=== PATIENT | female | born 1940 | race Hispanic/Latino ===

== ENCOUNTER 2017-01-15 07:58 | Outpatient (CLI) | payer MEDICARE ==
--- NOTE | 2017-01-14 09:28 | Mammography Report ---
BILATERAL MAMMOGRAM with CAD: HISTORY: Cancer screening. Comparison study is dated January 13, 2016. FINDINGS: There are scattered fibroglandular densities (approximately 25%-50% glandular). No mass, distortion, suspicious calcification, or skin change is seen. IMPRESSION: Negative mammogram. There is no mammographic evidence of malignancy. RECOMMENDATION: Follow-up per ACS guidelines. BI-RADS CATEGORY: 1 = Negative ACR BI-RADS MAMMOGRAPHIC CODES: 0 = Needs additional imaging evaluation; 1 = Negative; 2 = Benign; 3 = Probably benign; 4 = Suspicious; 5 = Malignant; 6 = Known biopsy-proven malignancy COMMENT: 1. Dense breast tissue, i.e., adenosis, fibrocystic changes, etc., may obscure an underlying neoplasm. 2. Approximately 10% of cancers are not detected with mammography. 3. A negative mammography report should not delay biopsy if a clinically suspicious mass is present. COMMENT: Patient follow-up letters are generated in [employer].
--- NOTE | 2017-01-15 08:29 | XRay Report ---
CHEST 2 VIEWS INDICATION: Malignant neoplasm of colon. COMPARISON: None similar. FINDINGS: PA and lateral chest radiographs demonstrate normal cardiomediastinal silhouette. Clear lungs. Demineralized bones. Multilevel thoracic spondylosis. CONCLUSION: No acute disease in the chest. Thank you for the opportunity to participate in this patient's care.
== END 2017-01-15 07:59 | disposition home or self-care (01) ==
LOC: SPVWC 07:58 → SPVIMAG 07:58
PROVIDERS: ATTEND Internal Medicine
DX: Z12.31 Encounter for screening mammogram for malignant neoplasm of breast (principal); C18.9 Malignant neoplasm of colon, unspecified; M47.894 Other spondylosis, thoracic region
CPT/HCPCS: 71020; G0202; 77067

== ENCOUNTER 2018-01-21 08:54 | Outpatient (CLI) | payer MEDICARE ==
--- NOTE | 2018-01-21 12:16 | Mammography Report ---
BILATERAL DIGITAL SCREENING MAMMOGRAM with CAD: 01/21/18 08:54:00 CLINICAL: Routine screening. COMPARISON: 01/14/17 FINDINGS: There are bilateral scattered areas of fibroglandular density.No mass, architectural distortion or suspicious calcifications. IMPRESSION: No mammographic evidence of malignancy. BI-RADS CATEGORY: 1 -- Negative RECOMMENDATION: Routine mammographic screening in one year. COMMENT: Patient follow-up letters are generated by our [employer] application.
== END 2018-01-21 08:55 | disposition home or self-care (01) ==
LOC: SPVWC 08:54
PROVIDERS: ATTEND Internal Medicine
DX: Z12.31 Encounter for screening mammogram for malignant neoplasm of breast (principal); M81.0 Age-related osteoporosis without current pathological fracture
CPT/HCPCS: 77067

== ENCOUNTER 2018-02-02 07:58 | Outpatient (CLI) | payer MEDICARE ==
--- NOTE | 2018-02-02 10:35 | Mammography Report ---
BONE DEXA:02/02/18 07:58:00 CLINICAL: Postmenopausal. COMPARISON: 01/13/16 TECHNIQUE: Two site bone DEXA performed on an Hologic scanner. FINDINGS: The average BMD of the lumbar spine L1-L4 is 1.012g/cm squared with a T-score of -0.3 and a Z-score of +2.2. This compares to 0.991g/cm squared on the last exam and represents a +2.1% change from the previous baseline. The average BMD of the left hip is 0.914g/cm squared with a T-score of -0.2 and a Z-score of +1.7. This compares to 0.917g/cm squared on the last exam and represents a -0.3% change from the previous baseline. IMPRESSION: 1. WHO classification: Normal with average fracture risk based on both spine and left hip measurements. 2. A slight improvement in spine BMD and a slight decline in left hip BMD compared to the last exam. RECOMMENDATION: Clinical correlation and routine screening. DEFINITIONS: BMD = Bone Mineral Density T-score = BMD related to mean peak bone mass of young adult (mean expressed in Standard Deviation) Z-score = Age matched BMD expressed in SD World Health Organization (WHO) Diagnostic Criteria Normal T-score > -1 SD Osteopenia T-score between -1 and -2.4 SD Osteoporosis T-score -2.5 SD or below NOTE: BMD is not the only risk factor for fracture; also consider factors such as the patient's age, risk of falling, previous osteoporotic fracture, family history of osteoporotic fractures, current smoker, and low body weight. Z-scores are not calculated if >80 years of age.
== END 2018-02-02 07:59 | disposition home or self-care (01) ==
LOC: SPVWC 07:58
PROVIDERS: ATTEND Internal Medicine
DX: M81.0 Age-related osteoporosis without current pathological fracture (principal); Z78.0 Asymptomatic menopausal state
CPT/HCPCS: 77080

== ENCOUNTER 2019-01-23 09:34 | Outpatient (CLI) | payer MEDICARE ==
--- NOTE | 2019-01-23 15:58 | Mammography Report ---
DIGITAL SCREENING MAMMOGRAM WITH CAD, 01/23/2019 INDICATION: Routine screening mammography. TECHNIQUE: Digital bilateral 2D mammography was obtained in the craniocaudal and mediolateral obliq ue projections. This examination was interpreted with the benefit of Computer-Aided Detection analysi s. COMPARISON: 01/21/2018 and 01/01/2015 FINDINGS: Breast Density: The breasts are heterogeneously dense, which may obscure small masses. There is no evidence of dominant mass, suspicious calcifications or architectural distortion in eithe r breast. IMPRESSION: No mammographic evidence of malignancy. Follow up recommendation: Routine yearly BI-RADS Category 1: Negative. A "normal" or negative report should not discourage follow up or biopsy of a clinically significant f inding. A written summary of these findings will be mailed to the patient. The patient will be entered into a mammography reporting system which will generate a reminder letter for the patient's next appointmen t at the appropriate interval. The [employer] recommends yearly mammograms starting at age 40 and continuing as l kelly as a woman is in good health. Breast MRI is recommended for women with an approximate 20-25% or greater lifetime risk of breast cancer, including women with a strong family history of breast or ova micki cancer or who have been treated for Hodgkin's disease. Signer Name: Diaz Martinez MD Signed: 01/23/2019 3:53 PM Workstation Name: [id number]
== END 2019-01-23 09:35 | disposition home or self-care (01) ==
LOC: SPVWC 09:34
PROVIDERS: ATTEND Internal Medicine
DX: Z12.31 Encounter for screening mammogram for malignant neoplasm of breast (principal)
CPT/HCPCS: 77067

== ENCOUNTER 2020-02-07 08:20 | Outpatient (CLI) | payer MEDICARE ==
--- NOTE | 2020-02-07 10:25 | Mammography Report ---
DIGITAL SCREENING MAMMOGRAM WITH CAD, 02/07/2020 INDICATION: Routine screening mammography. TECHNIQUE: Digital bilateral 2D mammography was obtained in the craniocaudal and mediolateral obliq ue projections. This examination was interpreted with the benefit of Computer-Aided Detection analysi s. COMPARISON: Prior mammograms 01/23/2019 and 01/21/2018 FINDINGS: Breast Density: There are scattered areas of fibroglandular density. There is no evidence of dominant mass, suspicious calcifications or architectural distortion in eithe r breast. There has been no significant change compared with the prior examinations. IMPRESSION: Follow up recommendation: Routine yearly BI-RADS Category 1: Negative. A "normal" or negative report should not discourage follow up or biopsy of a clinically significant f inding. A written summary of these findings will be mailed to the patient. The patient will be entered into a mammography reporting system which will generate a reminder letter for the patient's next appointmen t at the appropriate interval. The [employer] recommends yearly mammograms starting at age 40 and continuing as l kelly as a woman is in good health. Breast MRI is recommended for women with an approximate 20-25% or greater lifetime risk of breast cancer, including women with a strong family history of breast or ova micki cancer or who have been treated for Hodgkin's disease. Signer Name: Angela Calvin MD Signed: 02/07/2020 10:20 AM Workstation Name: [id number]
== END 2020-02-07 08:21 | disposition home or self-care (01) ==
LOC: SPVWC 08:20
PROVIDERS: ATTEND Internal Medicine
DX: Z12.31 Encounter for screening mammogram for malignant neoplasm of breast (principal); N64.89 Other specified disorders of breast
CPT/HCPCS: 77067

== ENCOUNTER 2020-05-08 08:45 | Outpatient (CLI) | payer MEDICARE ==
--- NOTE | 2020-05-08 09:30 | Mammography Report ---
DEXA BONE DENSITY SCAN INDICATION: MENOPAUSAL AND FEMALE CLIMACTERIC STATES. COMPARISON: 02/02/2018 LUMBAR SPINE (L1-L4): Bone mineral density (BMD) is 0.976 g/cm2. T-score is -0.6 (standard deviations of Young Adult mean). Z-score is 2.0 (standard deviations of Age Matched mean). There has been a 3.6% decrease in bone mineral density in this region since 2018. LEFT FEMORAL NECK: Bone mineral density (BMD) is 0.668 g/cm2. T-score is -1.6 (standard deviations of Young Adult mean). Z-score is 0.6 (standard deviations of Age Matched mean). There has been a 9% decrease in bone mineral density in this region since 2018. IMPRESSION: 1. WHO Classification: Osteopenia. Fracture Risk: Increased. Signer Name: Jaswinder Finn MD Signed: 05/08/2020 9:26 AM Workstation Name: [email or web address]
== END 2020-05-08 08:46 | disposition home or self-care (01) ==
LOC: SPVWC 08:45
PROVIDERS: ATTEND Internal Medicine
DX: C18.9 Malignant neoplasm of colon, unspecified (principal); N95.1 Menopausal and female climacteric states; M81.0 Age-related osteoporosis without current pathological fracture; E55.9 Vitamin D deficiency, unspecified
CPT/HCPCS: 77080

== ENCOUNTER 2021-02-07 09:08 | Outpatient (CLI) | payer MEDICARE ==
--- NOTE | 2021-02-07 10:32 | Mammography Report ---
DIGITAL SCREENING MAMMOGRAM WITH CAD, 02/07/2021 CLINICAL INFORMATION / INDICATION: Routine screening mammography. SCREENING MAMMO Z12.31 TECHNIQUE: Digital bilateral 2D mammography was obtained in the craniocaudal and mediolateral obliqu e projections. This examination was interpreted with the benefit of Computer-Aided Detection analysis . COMPARISON: 02/07/2020, 01/21/2018. FINDINGS: Breast Density: The breasts are heterogeneously dense, which may obscure small masses. No dominant mass, suspicious calcifications, or architectural distortion in either breast. IMPRESSION: No mammographic evidence of malignancy. Follow up recommendation: Routine yearly BI-RADS Category 1: Negative. A "normal" or negative report should not discourage follow up or biopsy of a clinically significant f inding. A written summary of these findings will be mailed to the patient. The patient will be entered into a mammography reporting system which will generate a reminder letter for the patient's next appointmen t at the appropriate interval. The [employer] recommends yearly mammograms starting at age 40 and continuing as l kelly as a woman is in good health. Breast MRI is recommended for women with an approximate 20-25% or greater lifetime risk of breast cancer, including women with a strong family history of breast or ova micki cancer or who have been treated for Hodgkin's disease. Signer Name: Ben Hernandez MD Signed: 02/07/2021 10:28 AM Workstation Name: [id number]
== END 2021-02-07 09:09 | disposition home or self-care (01) ==
LOC: SPVWC 09:08
PROVIDERS: ATTEND Internal Medicine
DX: Z12.31 Encounter for screening mammogram for malignant neoplasm of breast (principal)
CPT/HCPCS: 77067